=== PATIENT | male | born 1945 | race Hispanic/Latino ===

== ENCOUNTER 2018-01-31 11:23 | Day surgery (SDC) | payer BC ==
[~2018-01-31 11:23] MED LIST: IOPIDINE ONE; MYDRIACYL ONE; NEOFRIN ONE
[2018-01-31] MEDS ORDERED: IOPIDINE OS ONE ×2 (11:44→12:34)
[2018-01-31] MEDS ORDERED: NEOFRIN OS ONE (11:44)
[2018-01-31] MEDS ORDERED: MYDRIACYL OS ONE (11:44)
[2018-01-31 12:31] VITALS: BP 134/72
== END 2018-01-31 12:35 | disposition home or self-care (01) ==
LOC: OR 11:23
PROVIDERS: ATTEND Specialist
DX: E11.36 Type 2 diabetes mellitus with diabetic cataract (principal); H26.492 Other secondary cataract, left eye; I10 Essential (primary) hypertension; M19.90 Unspecified osteoarthritis, unspecified site; F17.200 Nicotine dependence, unspecified, uncomplicated; E78.00 Pure hypercholesterolemia, unspecified; Z79.899 Other long term (current) drug therapy; Z90.49 Acquired absence of other specified parts of digestive tract
CPT/HCPCS: 82962